=== PATIENT | female | born 1980 | race Caucasian/White ===

== ENCOUNTER → 2020-12-15 16:23 | Outpatient (CLI) | payer OTHER, SELFPAY ==
--- NOTE | 2020-12-15 16:25 | BI_ITS ---
MAMMOGRAPHY - BILATERAL SCREENING REASON FOR EXAM: Female, 39 years old. Routine annual screening examination. PERTINENT HISTORY: Non-contributory. TECHNIQUE: Digital bilateral breast irma (3D mammographic acquisition) in the CC and MLO projections. 2-D mediolateral oblique (MLO) and craniocaudad (CC) views of both breasts were obtained. CAD: Full Field Digital Mammography with Computer Added Detection was performed. COMPARISON: None. Baseline examination. FINDINGS: Breast Composition: There are scattered areas of fibroglandular density. There are no dominant masses or suspicious calcifications. Small benign-appearing bilateral axillary lymph nodes. No other significant abnormalities are identified. BI/SCRN MAMM (CAD)W/IRMA BILAT IMPRESSION: Negative screening mammogram. Yearly followup mammogram recommended. (A) ASSESSMENT CATEGORY: BIRADS Category 2: Benign. A letter regarding these results will be sent to the patient by the facility within 30 days. Approximately 10% of breast cancers are not detected by mammography. A normal mammogram should not delay biopsy of a clinically suspicious abnormality. [id number] Electronically Signed: Jules De Jesus MD at 8:41 EST , Service support ,
== END ==
PROVIDERS: PCP Internal Medicine; Referring Provider Internal Medicine; Visit Provider Internal Medicine
DX: Z12.31 Encounter for screening mammogram for malignant neoplasm of breast (principal); Z13.220 Encounter for screening for lipoid disorders; Z83.3 Family history of diabetes mellitus
CPT/HCPCS: 77063; 77067

== ENCOUNTER → 2021-02-09 14:05 | Outpatient (CLI) | payer OTHER, SELFPAY ==
[2021-02-09 16:20] LABS: Cholesterol 224 mg/dL (200); Glucose 92 mg/dL (74-106); High Density Lipoprotein 42 mg/dL; Triglycerides 131 mg/dL; Very Low Density Lipoprotein 26 mg/dL (5-40)
== END ==
PROVIDERS: PCP Internal Medicine; Referring Provider Internal Medicine; Visit Provider Internal Medicine
DX: Z01.419 Encounter for gynecological examination (general) (routine) without abnormal findings (principal); Z13.220 Encounter for screening for lipoid disorders; Z83.3 Family history of diabetes mellitus
CPT/HCPCS: 36415; 80061; 82947

== ENCOUNTER → 2022-12-06 | Outpatient (CLI) | payer BC, SELFPAY ==
--- NOTE | 2022-12-06 12:56 | BI_ITS ---
MAMMOGRAPHY - BILATERAL SCREENING REASON FOR EXAM: Female, 41 years old. Routine annual screening examination. PERTINENT HISTORY: Non-contributory. TECHNIQUE: Digital bilateral breast irma (3D mammographic acquisition) in the CC and MLO projections. 2-D mediolateral oblique (MLO) and craniocaudad (CC) views of both breasts were obtained. CAD: Full Field Digital Mammography with Computer Added Detection was performed. COMPARISON: Comparison is made with prior study dated 12/15/2020. FINDINGS: Breast Composition: There are scattered areas of fibroglandular density. There are no dominant masses or suspicious calcifications. No other significant abnormalities are identified. There has been no significant change since the prior study. BI/SCRN MAMM (CAD)W/IRMA BILAT IMPRESSION: Stable bilateral screening mammogram. Yearly follow-up mammogram recommended. (A) ASSESSMENT CATEGORY: BIRADS Category 1: Negative. A letter regarding these results will be sent to the patient by the facility within 30 days. Approximately 10% of breast cancers are not detected by mammography. A normal mammogram should not delay biopsy of a clinically suspicious abnormality. [id number] Electronically Signed: Jules De Jesus MD at 17:01 EST ,
== END | disposition home or self-care (01) ==
LOC: OPBI 12:54
PROVIDERS: PCP Internal Medicine; Visit Provider Internal Medicine
DX: Z12.31 Encounter for screening mammogram for malignant neoplasm of breast (principal)
CPT/HCPCS: 77063; 77067

== ENCOUNTER → 2022-12-14 | Outpatient (CLI) | payer BC, SELFPAY | END | disposition home or self-care (01) | PROVIDERS: PCP Internal Medicine; Visit Provider Internal Medicine | DX: R00.2 Palpitations (principal) | CPT/HCPCS: 93225; 93226 ==

== ENCOUNTER → 2025-04-16 | Outpatient (CLI) | payer BC, SELFPAY ==
--- NOTE | 2025-04-16 13:30 | BI_ITS ---
EXAM: SCRN MAMM (CAD)W/IRMA BILAT DATE: 04/16/2025 CLINICAL HISTORY: F, Age 44 y/o , SCRN MAMM (CAD)W/IRMA BILAT TECHNIQUE: SCRN MAMM (CAD)W/IRMA BILAT COMPARISON: Prior exam(s) dated 12/06/2022, 12/15/2020. FINDINGS: TISSUE DENSITY: There are scattered areas of fibroglandular density. Bilateral Breast Mammographic Findings: No significant masses, calcifications or other abnormalities are identified. BI/SCRN MAMM (CAD)W/IRMA BILAT IMPRESSION: There is no mammographic evidence of malignancy. OVERALL FINAL ASSESSMENT BI-RADS 1: NEGATIVE. RECOMMEND ANNUAL MAMMOGRAPHIC SCREENING. RECOMMENDATION: Routine annual follow-up in 1 Year A letter with findings and recommendations will be mailed to the patient. Reading Location: [id number]
== END | disposition home or self-care (01) ==
LOC: OPBI 13:19
PROVIDERS: PCP Nurse Practitioner Family; Referring Provider Nurse Practitioner Family; Visit Provider Nurse Practitioner Family
DX: Z12.31 Encounter for screening mammogram for malignant neoplasm of breast (principal)
CPT/HCPCS: 77063; 77067

== ENCOUNTER → 2025-04-27 | Outpatient (CLI) | payer BC, SELFPAY ==
--- NOTE | 2025-04-27 06:26 | CT_ITS ---
PROCEDURE: CT chest with IV contrast. 04/27/2025 REASON FOR EXAM: NODULE OF RIGHT LUNG TECHNIQUE: CHEST WITH CONTRAST Coronal and Sagittal reconstruction series were provided. CONTRAST: Isovue 370 VOLUME: 95 mL One or more dose reduction techniques were used (e.g., Automated exposure control, adjustment of the mA and/or kV according to patient size, use of iterative reconstruction technique). RADIATION DOSE SUMMARY: CTDlvol: 23.29 mGy DLP: 407.52 mGycm COMPARISON: None. FINDINGS: Lower neck: The thyroid gland is unremarkable. There is no supraclavicular lymphadenopathy. Mediastinum no abnormal masses or lymphadenopathy. Heart and Vasculature: Heart size is normal. There is no pericardial effusion. There is no calcific vascular disease of the thoracic aorta or coronary arteries evident. Lungs, airways and pleura: There is a 3 x 3 mm triangular pleural-based nodule in the apical segment of the upper lobe of the right lung (image 26), consistent with a normal intrapulmonary lymph node. There is a 5 x 3 mm triangular soft tissue density nodule in the middle lobe of the right lung (image 57) consistent with a normal intrapulmonary lymph node. There are no suspicious pulmonary nodules or masses in either lung. There is no significant lung disease. There are no pleural effusions. Upper Abdomen: Unremarkable. Chest wall: The soft tissues of the chest wall appear unremarkable. There is no axillary lymphadenopathy. 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 CT/Chest WITH Contrast IMPRESSION: 1. Benign pulmonary lymph nodes on the right as described. 2. There are no suspicious pulmonary nodules. 3. Other findings as noted. Reading Location: [id number]
== END | disposition home or self-care (01) ==
LOC: CT 06:23
PROVIDERS: PCP Nurse Practitioner Family; Referring Provider Internal Medicine; Visit Provider Internal Medicine
DX: R91.1 Solitary pulmonary nodule (principal)
CPT/HCPCS: 71260; Q9967